=== PATIENT | female | born 1940 | race Caucasian/White ===

== ENCOUNTER → 2024-02-05 10:29 | Outpatient (REF) | payer MEDICARE, SELFPAY | LOC: WDC 10:29 | PROVIDERS: ATTENDING PHYSICIAN Internal Medicine | DX: Z12.31 Encounter for screening mammogram for malignant neoplasm of breast (principal); Z12.39 Encounter for other screening for malignant neoplasm of breast | CPT/HCPCS: 77063; 77067 ==

== ENCOUNTER → 2025-02-06 11:14 | Outpatient (REF) | payer MEDICARE, SELFPAY | LOC: WDC 11:14 | PROVIDERS: ATTENDING PHYSICIAN Internal Medicine | DX: M85.80 Other specified disorders of bone density and structure, unspecified site (principal); Z12.31 Encounter for screening mammogram for malignant neoplasm of breast; Z78.0 Asymptomatic menopausal state | CPT/HCPCS: 77063; 77067; 77080 ==

== ENCOUNTER → 2025-02-13 09:23 | Outpatient (REF) | payer MEDICARE, SELFPAY | LOC: WDC 09:23 | PROVIDERS: ATTENDING PHYSICIAN Internal Medicine | DX: R92.8 Other abnormal and inconclusive findings on diagnostic imaging of breast (principal) | CPT/HCPCS: 76642 ==